=== PATIENT | male | born 1965 ===

== ENCOUNTER 2017-08-04 10:12 | Emergency (ER) | payer MEDICAID ==
[2017-08-04 10:26] VITALS: BP 146/84; PULSE 88; RESP 18; TEMP 98.3; O2SAT 100
--- NOTE | 2017-08-04 10:32 | C.PDOC ---
History Of Present Illness 51 year old male presents to the ER with a complaint of a growing cyst to the right wrist for the past month, associated with intermittent tingling sensation to the fingers. Patient states he initially had a small cyst on the right wrist and notes he picked up a battery approximately 1 month ago, since then it has grown. Denies weakness or numbness. Time Seen by Provider: 08/04/17 10:24 Chief Complaint (Nursing): Upper Extremity Problem/Injury History Per: Patient History/Exam Limitations: no limitations Onset/Duration Of Symptoms: Days Current Symptoms Are (Timing): Still Present Exacerbating Factor(s): Nothing Recent travel outside of the [place]: No Past Medical History Reviewed: Historical Data, Nursing Documentation, Vital Signs Vital Signs: Last Vital Signs Temp 98.3 F 08/04/17 10:20 Pulse 88 08/04/17 10:20 Resp 18 08/04/17 10:20 BP 146/84 08/04/17 10:20 Pulse Ox 100 08/04/17 10:32 Family History: States: Unknown Family Hx Review Of Systems Except As Marked, All Systems Reviewed And Found Negative. Musculoskeletal: Positive for: Other (Cyst on right wrist) Neurological: Negative for: Weakness, Numbness Physical Exam - Physical Exam Additional Physical Exam Comments: Constitutional: No acute distress. Head: Normocephalic. Atraumatic. Eyes: PERRL. ENT: Moist mucous membranes. Neck: Supple. Cardiovascular: Regular rate. Radial pulse 2+ bilaterally. Chest: No tenderness. Respiratory: Clear to auscultation bilaterally. GI: Soft. Nontender. Nondistended. Back: No CVA tenderness. Musculoskeletal: Hard, nontender mass to the extensor surface of the right hand , along the 2nd MCP, no erythema, no discharge, mildly changes in size with movement of wrist and fingers. Skin: No rash. Neurologic: Alert, no focal deficit. ED Course And Treatment O2 Sat by Pulse Oximetry: 100 (Room air) Pulse Ox Interpretation: Normal Medical Decision Making Medical Decision Making: Patient's symptoms consistent with ganglion cyst, advised to follow up with hand specialist for further treatment. Disposition - Disposition Referrals: Dany Clark MD [Staff Provider] - Disposition: HOME/ ROUTINE Disposition Time: 10:31 Condition: STABLE Instructions: Ganglion Cyst Forms: [employer] (Slovenian) Print Language: AMERICAN - Clinical Impression Clinical Impression: Ganglion cyst - Scribe Statement The provider has reviewed the documentation as recorded by the Scribe Kendall Todd All medical record entries made by the Scribe were at my direction and personally dictated by me. I have reviewed the chart and agree that the record accurately reflects my personal performance of the history, physical exam, medical decision making, and the department course for this patient. I have also personally directed, reviewed, and agree with the discharge instructions and disposition.
== END 2017-08-04 10:45 | disposition home or self-care (01) ==
LOC: C.ER 10:12
DX: M67.431 Ganglion, right wrist (principal)